=== PATIENT | female | born 1935 | race Two or more races ===

== ENCOUNTER 2020-07-29 07:33 | Day surgery (SDC) | payer OTHER ==
[~2020-07-29 07:33] MED LIST: HYDRALAZINE HC100 MG PO; PROPAFENONE HC150 MG PO; TOPROL XL100 M1 PO; XARELTO20 MG PO
[2020-07-29] MEDS ORDERED: ULTRACET PO (09:52)
[2020-07-29] MEDS ORDERED: RECTICARE30 GM TOP (09:53)
== END 2020-07-29 15:55 | disposition home or self-care (01) ==
LOC: CIR.AMB 07:33
PROVIDERS: ATTEND Surgery
DX: D01.3 Carcinoma in situ of anus and anal canal (principal); Z20.828 Contact with and (suspected) exposure to other viral communicable diseases